=== PATIENT | male | born 1975 | race Caucasian/White ===

== ENCOUNTER 2019-08-27 17:54 | Emergency (ER) | payer OTHER ==
[~2019-08-27] VITALS: Ht 162.6 cm; Wt 72.6 kg
[2019-08-27] MEDS ORDERED: ADVIL200 M1 PO (18:11)
[2019-08-27] MEDS ORDERED: TESSALON PERLE100 MG PO (19:05)
[2019-08-27 19:17] VITALS: BP 112/70
== END 2019-08-27 19:39 | disposition home or self-care (01) ==
LOC: ER 17:54
DX: J10.1 Influenza due to other identified influenza virus with other respiratory manifestations (principal)